=== PATIENT | male | born 1950 | race Caucasian/White ===

== ENCOUNTER 2018-02-27 11:46 | Inpatient (IN) | payer MEDICARE ==
[~2018-02-27] VITALS: Ht 162.6 cm; Wt 109.2 kg
[~2018-02-27 11:46] MED LIST: BISA10SU65 PR; CYCL-259 PO; DABI75CA3 PO; DIGO250T PO; DILT240C55 PO; ENAL10TA PO; GABA300C10 PO; HYDR-3241 PO; HYDR25TA6 PO; MAGN400T26 PO; MAGN400T7 PO; METO25TA35 PO; POLY17PO5 PO; TRAM300T26 PO; TRAM50TA2 PO; VANC125C11 PO; VANC1VIA3 PO; WARF5TAB PO
[2018-02-27] MEDS ORDERED: MORPHINE SULFATE 4 MG/ML, 1ML IVPush PRN (12:30)
[2018-02-27] MEDS ORDERED: ONDANSETRON ODT 4 MG PO ONE (12:30)
[2018-02-27] MEDS ORDERED: SODIUM CHLORIDE FLUSH 10ML SYR IVF ONE (12:30)
[2018-02-27 13:02] LABS: BASOPHILS # (AUTO) 0.05 x10^3/uL (0-0.1); BASOPHILS % (AUTO) 0 % (0-1); EOSINOPHILS # (AUTO) 0.28 x10^3/uL (0-0.4); EOSINOPHILS % (AUTO) 2 % (1-7); LYMPHOCYTES # (AUTO) 2.25 x10^3/uL (1-3.4); LYMPHOCYTES % (AUTO) 14 % (22-44); MD NO; MEAN CORPUSCULAR HGB CONC 33.3 g/dL (33.2-36.2); MEAN PLATELET VOLUME 9.1 fL (7.4-10.4); MONOCYTES # (AUTO) 0.74 x10^3/uL (0.2-0.8); MONOCYTES % (AUTO) 5 % (2-9); NEUTROPHILS # (AUTO) 12.27 x10^3/uL (1.8-6.8); NEUTROPHILS % (AUTO) 79 % (42-75); PLATELET COUNT 299 x10^3/uL (130-400); RED BLOOD COUNT 5.14 x10^6/uL (4.38-5.82); RED CELL DISTRIBUTION WIDTH 13.2 % (9.4-14.8)
[2018-02-27 13:12] LABS: ALBUMIN 3.2 g/dL (3.4-5.0); ANION GAP 8 mmol/L (5-15); CALCIUM 9.5 mg/dL (8.5-10.1); CHLORIDE 103 mmol/L (98-107)
[2018-02-27 13:17] LABS: ALANINE AMINOTRANSFERASE 30 U/L (12-78); ALKALINE PHOSPHATASE 109 U/L (45-117); BILIRUBIN,TOTAL 0.8 mg/dL (0.2-1.0); TOTAL PROTEIN 7.9 g/dL (6.4-8.2); TROPONIN I < 0.015 ng/mL (0.000-0.045)
[2018-02-27] MEDS ORDERED: FURO20TA3 PO (13:23)
[2018-02-27] MEDS ORDERED: TAMS0.4C2 PO (13:23)
[2018-02-27] MEDS ORDERED: POTA20PA25 PO (13:23)
[2018-02-27] MEDS ORDERED: ATOR-2 PO (13:23)
[2018-02-27] MEDS ORDERED: METF10003 PO (13:23)
[2018-02-27] MEDS ORDERED: GLIP5TAB10 PO (13:23)
[2018-02-27] MEDS ORDERED: TIZA2CAP PO (13:23)
[2018-02-27] MEDS ORDERED: CEFOTETAN PMX 1GM/50ML 50 ML IV ONE (14:00)
[2018-02-27] MEDS ORDERED: ONDANSETRON ODT 4 MG ONE (14:09)
[2018-02-27] MEDS ORDERED: CEFOTETAN PMX 1GM/50ML 50 ML ONE (14:09)
[2018-02-27] MEDS ORDERED: MORPHINE SULFATE 4 MG/ML, 1ML ONE (14:09)
[2018-02-27 14:43] LABS: INTERNATIONAL NORMALIZED RATIO 1.08 (0.93-1.1); PROTHROMBIN TIME 11.2 Seconds (9.6-11.5)
[2018-02-27 14:59] VITALS: BP 145/73
[2018-02-27] MEDS ORDERED: ONDANSETRON 2MG/ML, 2ML IVPush PRN (15:30)
[2018-02-27] MEDS ORDERED: LABETALOL 5MG/ML, 20ML IVPush PRN (15:30)
[2018-02-27] MEDS ORDERED: ONDANSETRON ODT 4 MG PO PRN (15:30)
[2018-02-27 15:40] LABS: FREE T4 (FREE THYROXINE) 1.63 ng/dL (0.76-1.46)
[2018-02-27] MEDS: METOPROLOL TARTRATE 25 MG TABLET PO SCH (17:23)
[2018-02-27] MEDS: GABAPENTIN 300 MG CAPSULE PO SCH ×2 (17:23→21:00)
[2018-02-27] MEDS: D5%-0.45% NACL 1,000 ML IV SCH (17:24)
[2018-02-27] MEDS: morphine SULFATE 10 MG/ML, 1ML IVPush PRN ×2 (17:36→20:29)
[2018-02-27] MEDS: CEFTRIAXONE 2 GM in SODIUM CHLORIDE 0.9% 50 ML IV SCH (18:37)
[2018-02-27 19:03] VITALS: BP 133/81
[2018-02-27 20:00] LABS: MICROSCOPIC INDICATED
[2018-02-27 20:02] LABS: CULTURE INDICATED? YES
[2018-02-27] MEDS: METRONIDAZOLE PMX 500MG/100ML 100 ML IV SCH (20:29)
[2018-02-27] MEDS: ENOXAPARIN 40 MG/0.4 ML SQ SCH (21:00)
[2018-02-27] MEDS: ATORVASTATIN 80 MG TABLET PO SCH (21:00)
[2018-02-27] MEDS: MAGNESIUM OXIDE 400 MG TABLET PO SCH (21:00)
[2018-02-28] MEDS: morphine SULFATE 10 MG/ML, 1ML IVPush PRN ×7 (00:29→22:19)
[2018-02-28] MEDS: D5%-0.45% NACL 1,000 ML IV SCH ×3 (01:49→17:36)
[2018-02-28 01:59] VITALS: BP 114/68
[2018-02-28] MEDS: METRONIDAZOLE PMX 500MG/100ML 100 ML IV SCH ×3 (04:22→20:45)
[2018-02-28 05:14] LABS: BASOPHILS # (AUTO) 0.07 x10^3/uL (0-0.1); BASOPHILS % (AUTO) 1 % (0-1); EOSINOPHILS # (AUTO) 0.41 x10^3/uL (0-0.4); EOSINOPHILS % (AUTO) 4 % (1-7); LYMPHOCYTES # (AUTO) 2.44 x10^3/uL (1-3.4); LYMPHOCYTES % (AUTO) 22 % (22-44); MD NO; MEAN CORPUSCULAR HEMOGLOBIN 30.9 pg (27.5-34.5); MEAN CORPUSCULAR HGB CONC 33.5 g/dL (33.2-36.2); MEAN CORPUSCULAR VOLUME 92.3 fL (81-97); MEAN PLATELET VOLUME 8.9 fL (7.4-10.4); MONOCYTES # (AUTO) 0.74 x10^3/uL (0.2-0.8); MONOCYTES % (AUTO) 7 % (2-9); NEUTROPHILS # (AUTO) 7.69 x10^3/uL (1.8-6.8); NEUTROPHILS % (AUTO) 68 % (42-75); PLATELET COUNT 298 x10^3/uL (130-400); RED BLOOD COUNT 4.79 x10^6/uL (4.38-5.82); RED CELL DISTRIBUTION WIDTH 13.3 % (9.4-14.8)
[2018-02-28 05:29] LABS: ALANINE AMINOTRANSFERASE 56 U/L (12-78); ALBUMIN 2.7 g/dL (3.4-5.0); ALKALINE PHOSPHATASE 183 U/L (45-117); BILIRUBIN,TOTAL 0.6 mg/dL (0.2-1.0); CALCIUM 8.7 mg/dL (8.5-10.1)
[2018-02-28 05:32] LABS: ANION GAP 6 mmol/L (5-15); CHLORIDE 103 mmol/L (98-107)
[2018-02-28 06:34] VITALS: BP 116/74
[2018-02-28] MEDS: METOPROLOL TARTRATE 25 MG TABLET PO SCH ×2 (06:36→17:36)
[2018-02-28 06:42] VITALS: BP 107/69
[2018-02-28] MEDS: SENNA/DOCUSATE TABLET PO SCH (08:25)
[2018-02-28] MEDS: GABAPENTIN 300 MG CAPSULE PO SCH ×3 (08:25→20:46)
[2018-02-28] MEDS: MAGNESIUM OXIDE 400 MG TABLET PO SCH ×2 (08:25→20:46)
[2018-02-28] MEDS: TAMSULOSIN 0.4 MG CAP.ER.24H PO SCH (08:26)
[2018-02-28] MEDS: DILTIAZEM 240 MG CAP.ER.24H PO SCH (08:32)
[2018-02-28] MEDS: DIGOXIN 0.125 MG TABLET PO SCH (09:32)
[2018-02-28] MEDS ORDERED: MORPHINE SULFATE 4 MG/ML, 1ML ONE ×3 (12:21→18:39)
[2018-02-28 13:07] VITALS: BP 109/71
[2018-02-28] MEDS: CEFTRIAXONE 2 GM in SODIUM CHLORIDE 0.9% 50 ML IV SCH (17:36)
[2018-02-28 19:29] VITALS: BP 123/75
[2018-02-28] MEDS: ENOXAPARIN 40 MG/0.4 ML SQ SCH (20:46)
[2018-02-28] MEDS: ATORVASTATIN 80 MG TABLET PO SCH (20:46)
[2018-03-01 01:12] VITALS: BP 129/82
[2018-03-01] MEDS: D5%-0.45% NACL 1,000 ML IV SCH ×3 (02:08→18:04)
[2018-03-01] MEDS: morphine SULFATE 10 MG/ML, 1ML IVPush PRN ×7 (02:16→23:57)
[2018-03-01] MEDS: METRONIDAZOLE PMX 500MG/100ML 100 ML IV SCH ×3 (04:49→20:05)
[2018-03-01 05:07] LABS: ALBUMIN 2.4 g/dL (3.4-5.0); ANION GAP 6 mmol/L (5-15); CALCIUM 8.4 mg/dL (8.5-10.1); CHLORIDE 103 mmol/L (98-107)
[2018-03-01 05:10] LABS: ALANINE AMINOTRANSFERASE 38 U/L (12-78); ALKALINE PHOSPHATASE 132 U/L (45-117); BILIRUBIN,TOTAL 0.7 mg/dL (0.2-1.0); CREATININE 0.79 mg/dL (0.7-1.3); TOTAL PROTEIN 6.3 g/dL (6.4-8.2)
[2018-03-01] MEDS: METOPROLOL TARTRATE 25 MG TABLET PO SCH ×2 (06:19→18:05)
[2018-03-01 07:13] VITALS: BP 127/80
[2018-03-01] MEDS: MAGNESIUM OXIDE 400 MG TABLET PO SCH ×3 (09:00→20:05)
[2018-03-01] MEDS: GABAPENTIN 300 MG CAPSULE PO SCH ×4 (09:00→20:05)
[2018-03-01] MEDS: DIGOXIN 0.125 MG TABLET PO SCH ×2 (09:00→10:12)
[2018-03-01] MEDS: TAMSULOSIN 0.4 MG CAP.ER.24H PO SCH ×2 (09:00→10:11)
[2018-03-01] MEDS: SENNA/DOCUSATE TABLET PO SCH (09:00)
[2018-03-01] MEDS: DILTIAZEM 240 MG CAP.ER.24H PO SCH ×2 (09:00→10:11)
[2018-03-01 13:14] VITALS: BP 112/77
[2018-03-01] MEDS: CEFTRIAXONE 2 GM in SODIUM CHLORIDE 0.9% 50 ML IV SCH (18:04)
[2018-03-01 19:23] VITALS: BP 104/63
[2018-03-01] MEDS: ATORVASTATIN 80 MG TABLET PO SCH (20:05)
[2018-03-01] MEDS: ENOXAPARIN 40 MG/0.4 ML SQ SCH (20:06)
[2018-03-02 01:10] VITALS: BP 123/80
[2018-03-02] MEDS: D5%-0.45% NACL 1,000 ML IV SCH ×3 (01:55→20:32)
[2018-03-02] MEDS: METRONIDAZOLE PMX 500MG/100ML 100 ML IV SCH ×3 (04:23→20:32)
[2018-03-02] MEDS: morphine SULFATE 10 MG/ML, 1ML IVPush PRN ×3 (04:24→20:36)
[2018-03-02] MEDS: METOPROLOL TARTRATE 25 MG TABLET PO SCH ×2 (06:39→17:40)
[2018-03-02] MEDS ORDERED: BUPIVACAINE/PF-EPI 0.5% 1:200K ONE (06:45)
[2018-03-02 07:20] VITALS: BP 127/79
[2018-03-02] MEDS: MAGNESIUM OXIDE 400 MG TABLET PO SCH ×2 (08:34→20:32)
[2018-03-02] MEDS: GABAPENTIN 300 MG CAPSULE PO SCH ×3 (08:34→20:32)
[2018-03-02] MEDS: TAMSULOSIN 0.4 MG CAP.ER.24H PO SCH (08:34)
[2018-03-02] MEDS: DIGOXIN 0.125 MG TABLET PO SCH (08:34)
[2018-03-02] MEDS: SENNA/DOCUSATE TABLET PO SCH (08:34)
[2018-03-02] MEDS: DILTIAZEM 240 MG CAP.ER.24H PO SCH (08:34)
[2018-03-02] MEDS ORDERED: ACETAMINOPHEN 500 MG TABLET PO ONE (10:30)
[2018-03-02] MEDS ORDERED: FAMOTIDINE 20 MG TABLET PO ONE (10:30)
[2018-03-02] MEDS ORDERED: ONDANSETRON 2MG/ML, 2ML IVPush ONE (10:30)
[2018-03-02] MEDS ORDERED: OXYcodone IR 5MG TABLET PO ONE (10:30)
[2018-03-02] MEDS ORDERED: GABAPENTIN 300 MG CAPSULE PO ONE (10:30)
[2018-03-02] MEDS ORDERED: MIDAZOLAM 1 MG/ML, 2ML ONE (10:57)
[2018-03-02] MEDS ORDERED: FENTANYL PF 100 MCG/2ML ONE (10:57)
[2018-03-02] MEDS ORDERED: ONDANSETRON 2MG/ML, 2ML IV PRN (12:30)
[2018-03-02] MEDS ORDERED: EPHEDRINE 50 MG/ML, 1ML IVPush PRN (12:30)
[2018-03-02] MEDS ORDERED: ALBUTEROL SULFATE 2.5 MG/3 ML NPPB PRN (12:30)
[2018-03-02] MEDS ORDERED: ACETAMINOPHEN 325 MG TABLET PO PRN (12:30)
[2018-03-02] MEDS ORDERED: HYDROmorphone 1 MG/ML, 1ML IV PRN (12:30)
[2018-03-02] MEDS ORDERED: hydrALAzine 20 MG/ML, 1ML IV PRN (12:30)
[2018-03-02] MEDS ORDERED: LABETALOL 5MG/ML, 20ML IV PRN (12:30)
[2018-03-02] MEDS ORDERED: FENTANYL PF 100 MCG/2ML IV PRN (12:30)
[2018-03-02] MEDS ORDERED: OXYcodone 5 MG/5 ML ORAL.SOL UDC PO PRN (12:30)
[2018-03-02] MEDS ORDERED: HYDROcodone/APAP 7.5-325MG/15ML UDC PO PRN (12:30)
[2018-03-02] MEDS ORDERED: HALOPERIDOL 5 MG/ML IV PRN (12:30)
[2018-03-02] MEDS ORDERED: PROMETHAZINE 25 MG/ML, 1ML IV PRN (12:30)
[2018-03-02] MEDS ORDERED: MEPERIDINE/PF 25MG/0.5ML IVPush PRN (12:30)
[2018-03-02] MEDS ORDERED: MIDAZOLAM 1 MG/ML, 2ML IV PRN (12:30)
[2018-03-02 13:15] VITALS: BP 106/71
[2018-03-02 14:46] VITALS: BP 142/82
[2018-03-02] MEDS ORDERED: PROPOFOL 10 MG/ML, 20ML ONE (16:01)
[2018-03-02] MEDS ORDERED: GLYCOPYRROLATE 0.2MG/1ML, 5ML ONE (16:01)
[2018-03-02] MEDS ORDERED: SUCCINYLCHOLINE 20 MG/ML, 10ML ONE (16:01)
[2018-03-02] MEDS ORDERED: ONDANSETRON 2MG/ML, 2ML ONE (16:01)
[2018-03-02] MEDS ORDERED: NEOSTIGMINE 1 MG/ML, 10ML ONE (16:01)
[2018-03-02] MEDS ORDERED: CEFAZOLIN 1,000 MG ONE (16:01)
[2018-03-02] MEDS ORDERED: DEXAMETHASONE 4 MG/ML, 1ML ONE (16:01)
[2018-03-02] MEDS ORDERED: ROCURONIUM 10 MG/ML,10ML ONE (16:01)
[2018-03-02] MEDS: CEFTRIAXONE 2 GM in SODIUM CHLORIDE 0.9% 50 ML IV SCH (17:40)
[2018-03-02 19:33] VITALS: BP 135/83
[2018-03-02] MEDS: ENOXAPARIN 40 MG/0.4 ML SQ SCH (20:32)
[2018-03-02] MEDS: ATORVASTATIN 80 MG TABLET PO SCH (20:32)
[2018-03-03] MEDS: morphine SULFATE 10 MG/ML, 1ML IVPush PRN ×2 (00:14→03:20)
[2018-03-03 01:02] VITALS: BP 125/80
[2018-03-03] MEDS: D5%-0.45% NACL 1,000 ML IV SCH ×2 (03:20→09:20)
[2018-03-03] MEDS: METRONIDAZOLE PMX 500MG/100ML 100 ML IV SCH ×2 (04:28→11:42)
[2018-03-03 05:49] LABS: BASOPHILS # (AUTO) 0.03 x10^3/uL (0-0.1); BASOPHILS % (AUTO) 0 % (0-1); EOSINOPHILS % (AUTO) 0 % (1-7); LYMPHOCYTES # (AUTO) 1.23 x10^3/uL (1-3.4); LYMPHOCYTES % (AUTO) 12 % (22-44); MD NO; MEAN CORPUSCULAR HEMOGLOBIN 31.1 pg (27.5-34.5); MEAN CORPUSCULAR HGB CONC 33.5 g/dL (33.2-36.2); MEAN CORPUSCULAR VOLUME 92.7 fL (81-97); MEAN PLATELET VOLUME 9.2 fL (7.4-10.4); MONOCYTES # (AUTO) 0.63 x10^3/uL (0.2-0.8); MONOCYTES % (AUTO) 6 % (2-9); NEUTROPHILS # (AUTO) 8.44 x10^3/uL (1.8-6.8); NEUTROPHILS % (AUTO) 82 % (42-75); PLATELET COUNT 270 x10^3/uL (130-400); RED BLOOD COUNT 4.28 x10^6/uL (4.38-5.82); RED CELL DISTRIBUTION WIDTH 12.9 % (9.4-14.8)
[2018-03-03 05:53] LABS: ALANINE AMINOTRANSFERASE 48 U/L (12-78); ALBUMIN 2.2 g/dL (3.4-5.0); ANION GAP 6 mmol/L (5-15); CALCIUM 8.4 mg/dL (8.5-10.1); CHLORIDE 105 mmol/L (98-107); CREATININE 0.68 mg/dL (0.7-1.3)
[2018-03-03 05:55] LABS: ALKALINE PHOSPHATASE 94 U/L (45-117); BILIRUBIN,TOTAL 0.2 mg/dL (0.2-1.0); TOTAL PROTEIN 5.8 g/dL (6.4-8.2)
[2018-03-03] MEDS: METOPROLOL TARTRATE 25 MG TABLET PO SCH ×2 (06:33→17:42)
[2018-03-03 07:44] VITALS: BP 135/84
[2018-03-03] MEDS ORDERED: SODIUM PHOSPHATE 20 MMOL in SODIUM CHLORIDE 0.9% 500 ML IV ONE (09:30)
[2018-03-03] MEDS: TAMSULOSIN 0.4 MG CAP.ER.24H PO SCH (10:23)
[2018-03-03] MEDS: SENNA/DOCUSATE TABLET PO SCH (10:23)
[2018-03-03] MEDS: GABAPENTIN 300 MG CAPSULE PO SCH ×3 (10:23→20:50)
[2018-03-03] MEDS: DILTIAZEM 240 MG CAP.ER.24H PO SCH (10:23)
[2018-03-03] MEDS: DIGOXIN 0.125 MG TABLET PO SCH (10:24)
[2018-03-03] MEDS: MAGNESIUM OXIDE 400 MG TABLET PO SCH ×2 (10:24→20:50)
[2018-03-03 12:32] VITALS: BP 124/77
[2018-03-03] MEDS: CEFTRIAXONE 2 GM in SODIUM CHLORIDE 0.9% 50 ML IV SCH (17:42)
[2018-03-03 19:00] VITALS: BP 106/67
[2018-03-03] MEDS: ENOXAPARIN 40 MG/0.4 ML SQ SCH (20:49)
[2018-03-03] MEDS: metroNIDAZOLE 500 MG TABLET PO SCH (20:50)
[2018-03-03] MEDS: ATORVASTATIN 80 MG TABLET PO SCH (20:50)
[2018-03-04 03:05] VITALS: BP 113/67
[2018-03-04] MEDS: METOPROLOL TARTRATE 25 MG TABLET PO SCH (06:22)
[2018-03-04] MEDS: SENNA/DOCUSATE TABLET PO SCH ×2 (09:00→10:34)
[2018-03-04 09:55] VITALS: BP 111/73
[2018-03-04] MEDS: DILTIAZEM 240 MG CAP.ER.24H PO SCH (10:33)
[2018-03-04] MEDS: TAMSULOSIN 0.4 MG CAP.ER.24H PO SCH (10:34)
[2018-03-04] MEDS: metroNIDAZOLE 500 MG TABLET PO SCH (10:34)
[2018-03-04] MEDS: GABAPENTIN 300 MG CAPSULE PO SCH (10:34)
[2018-03-04] MEDS: DIGOXIN 0.125 MG TABLET PO SCH (10:34)
[2018-03-04] MEDS: MAGNESIUM OXIDE 400 MG TABLET PO SCH (10:34)
== END 2018-03-04 13:31 | disposition home or self-care (01) | DRG 417 ==
LOC: ED 13:48 → EDIP 13:49 → ED 13:55 → 3NE 14:51
PROVIDERS: ADMIT Internal Medicine; ATTEND Hospitalist
PROC: 0FT44ZZ Resection of Gallbladder, Percutaneous Endoscopic Approach (ICD-10-PCS; principal; 2018-02-27)
DX: K80.00 Calculus of gallbladder with acute cholecystitis without obstruction (principal); K85.00 Idiopathic acute pancreatitis without necrosis or infection; D68.59 Other primary thrombophilia; J98.11 Atelectasis; R79.89 Other specified abnormal findings of blood chemistry; I48.91 Unspecified atrial fibrillation; J44.9 Chronic obstructive pulmonary disease, unspecified; E78.5 Hyperlipidemia, unspecified; F12.90 Cannabis use, unspecified, uncomplicated; G62.9 Polyneuropathy, unspecified; E11.65 Type 2 diabetes mellitus with hyperglycemia; G89.29 Other chronic pain; M19.90 Unspecified osteoarthritis, unspecified site; E66.9 Obesity, unspecified; I45.10 Unspecified right bundle-branch block; I10 Essential (primary) hypertension; K76.0 Fatty (change of) liver, not elsewhere classified; M47.814 Spondylosis without myelopathy or radiculopathy, thoracic region; Z80.42 Family history of malignant neoplasm of prostate; Z87.891 Personal history of nicotine dependence; Z99.3 Dependence on wheelchair; Z91.041 Radiographic dye allergy status; Z91.013 Allergy to seafood
CPT/HCPCS: 36415; 74022; 76700; 80053; 80162; 81001; 83605; 83690; 83735; 84100; 84439; 84443; 84484; 85025; 85610; 85730; 87040; 87086; 88304; 93005; 96374; J0690; J0696; J1100; J1650; J2250; J2405; J2704; J2710; J3010; J3490; Q0162; J0330; J2270; J7040; S0074